=== PATIENT | female | born 1990 | race Caucasian/White ===

== ENCOUNTER 2017-04-11 20:00 | Emergency (ER) | payer SELFPAY ==
[2017-04-11 21:16] VITALS: BP 126/66
--- NOTE | 2017-04-12 00:06 | ED Physician Documentation ---
General Adult - HISTORIAN Historian: patient - HPI Stated Complaint: contractions/low back pain Chief Complaint: General Adult Additional Information: 27 y/o female who is 23 weeks who states she is having upper abdominal discomfort and regular contractions 5 minutes apart. Onset: hours (2) Timing: still present Severity: moderate Modifying Factors: no care, was seen today at clinic in [place], blood drawn Further Comments: no - ROS CONST: other (ate a hamburger which made her nauseas for supper) EYES/ENT: none CVS/RESP: none GI/: abdominal pain, nausea MS/SKIN/LYMPH: none NEURO/PSYCH: denies: headache, fainting, dizziness, tingling, numbness, difficulty walking, difficulty with speech, anxiety, depression - PAST HX Past History: other (P4) Other History: none Surgeries/Procedures: none Immunizations: referred to PCP Allergies/Adverse Reactions: Allergies Allergy/AdvReac Type Severity Reaction Status Date / Time latex Allergy Verified 04/11/17 21:17 lorazepam [From Ativan] Allergy Verified 04/11/17 21:17 Home Medications: Ambulatory Orders Medication Instructions Recorded NK [NK] 04/11/17 - SOCIAL HX Smoking History: cigarettes Alcohol Use: none Drug Use: methamphetamines - FAMILY HX Family History: No - VITAL SIGNS Vital Signs: Vital Signs Temp Pulse Resp BP Pulse Ox 98.4 F 85 16 126/66 85 L 04/11/17 21:10 04/11/17 21:10 04/11/17 21:10 04/11/17 21:10 04/11/17 21:10 - REVIEWED ASSESSMENTS Nursing Assessment Reviewed: Yes Vitals Reviewed: Yes Progress - Results/Orders Results/Orders: no testing ordered - Progress Progress: pt. stable netire time in er. No evidence whatesoever of any true labor/ contractions Critical Care Note - Critical Care Note Total Time (mins): 0 ED Results Lab/Radiology - Lab Results Lab Results: none ordered - Radiology Radiology Impressions: none ordered, pt. pregnanat General Adult Physical Exam - PHYSICAL EXAM GENERAL APPEARANCE: mild distress EENT: eye inspection normal, ENT inspection normal, pharynx normal, no signs of dehydration, KATIE, no nystagmus, TM's nml NECK: normal inspection, thyroid normal, supple RESPIRATORY: no resp distress, chest non-tender, breath sounds normal CVS: reg rate & rhythm, heart sounds normal, equal pulses, no murmur, no gallop , PMI nml, no JVD, no friction rub ABDOMEN: soft, other (I was personally in the room for 50 minutes either interviewing, generally examining or ding pelvic exam. During this entire tiem the pt. only once felt she weas having a "contraction" which lasted 20 seconds and never caused uterus to harden or back muscles to harden. cervix closed, noneffaced, nondilated, no bleeding or amniotic fluid noted in vaginal vault.) RECTAL: other (normal external appearance) BACK: normal inspection SKIN: warm/dry, normal color EXTREMITIES: non-tender, normal range of motion, no evidence of injury, no edema NEURO: oriented X3, CN's nml as tested, motor nml, sensation nml, mood/affect nml, cognition normal Discharge Clincal Impression: Donte Iraheta' contraction Referrals: Primary Doctor,No [Primary Care Provider] - 2 Days Home Medications: Ambulatory Orders NK [NK] 04/11/17 Comments: pt. transferred back to [facility] in stable condition Condition: Stable Disposition: 01 HOME, SELF-CARE Decision to Admit: NO Decision Time: 21:00
== END 2017-04-11 21:10 | disposition home or self-care (01) ==
LOC: EDSTATUS 20:00 → ED 20:00 → EDSEX 20:00 → ED 20:00
DX: O47.03 False labor before 37 completed weeks of gestation, third trimester (principal)
CPT/HCPCS: 99283